=== PATIENT | male | born 1940 | race Caucasian/White ===

== ENCOUNTER 2017-03-08 03:32 | Observation (INO) | payer BC, MEDICARE, OTHER ==
[~2017-03-08] VITALS: Ht 172.7 cm; Wt 75.0 kg
[2017-03-08] MEDS ORDERED: NAPR220C2 PO (03:49)
[2017-03-08 04:55] LABS: BASOPHILS # (AUTO) 0.07 x10^3/uL (0-0.1); BASOPHILS % (AUTO) 1 % (0-1); EOSINOPHILS # (AUTO) 0.13 x10^3/uL (0-0.4); EOSINOPHILS % (AUTO) 2 % (1-7); LYMPHOCYTES # (AUTO) 1.82 x10^3/uL (1-3.4); LYMPHOCYTES % (AUTO) 25 % (22-44); MD NO; MEAN CORPUSCULAR HEMOGLOBIN 31.6 pg (27.5-34.5); MEAN CORPUSCULAR VOLUME 92.9 fL (81-97); MEAN PLATELET VOLUME 7.7 fL (7.4-10.4); MONOCYTES # (AUTO) 0.55 x10^3/uL (0.2-0.8); MONOCYTES % (AUTO) 8 % (2-9); NEUTROPHILS # (AUTO) 4.58 x10^3/uL (1.8-6.8); NEUTROPHILS % (AUTO) 64 % (42-75); PLATELET COUNT 162 x10^3/uL (130-400); RED BLOOD COUNT 4.56 x10^6/uL (4.38-5.82); RED CELL DISTRIBUTION WIDTH 13.7 % (9.4-14.8)
[2017-03-08 05:00] LABS: ALANINE AMINOTRANSFERASE 38 U/L (12-78); ALBUMIN 3.8 g/dL (3.4-5.0); ANION GAP 9 mmol/L (5-15); CHLORIDE 105 mmol/L (98-107); CREATININE 1.14 mg/dL (0.7-1.3)
[2017-03-08 05:07] LABS: ALKALINE PHOSPHATASE 63 U/L (45-117); BILIRUBIN,TOTAL 1.2 mg/dL (0.2-1.0); TOTAL PROTEIN 7.1 g/dL (6.4-8.2)
[2017-03-08 05:09] LABS: SALICYLATE LEVEL < 1.7 mg/dL (2.8-20.0)
[2017-03-08 05:10] LABS: ACETAMINOPHEN < 2 mcg/mL (10-30)
[2017-03-08 05:14] LABS: AMPHETAMINE SCREEN, URINE Negative (Negative); BARBITURATE SCREEN, URINE Negative (Negative); BENZODIAZEPINE SCREEN, URINE Negative (Negative); CANNABINOID SCREEN, URINE Negative (Negative); COCAINE SCREEN, URINE Negative (Negative); METHADONE SCREEN, URINE Negative (Negative); OPIATE SCREEN, URINE Negative (Negative)
[2017-03-08 06:34] LABS: MICROSCOPIC INDICATED
[2017-03-08 06:35] LABS: CULTURE INDICATED? NO
[2017-03-08] MEDS ORDERED: ACETAMINOPHEN 325 MG TABLET PO PRN (08:30)
[2017-03-08] MEDS ORDERED: POLYETHYLENE GLYCOL 17 GM PACKET PO PRN (08:30)
[2017-03-08] MEDS ORDERED: BISACODYL 10 MG SUPP PR PRN (08:30)
[2017-03-08] MEDS ORDERED: DOCUSATE 100 MG CAPSULE PO PRN (08:30)
[2017-03-08] MEDS ORDERED: ONDANSETRON ODT 4 MG PO PRN (08:30)
[2017-03-08 09:45] VITALS: BP_SYST 176; BP_SYST 178; BP_DIAS 107; BP_DIAS 73
[2017-03-08 10:08] VITALS: BP 180/89
[2017-03-08 11:11] VITALS: BP 133/95
[2017-03-08] MEDS: QUETIAPINE 25MG TABLET PO PRN ×2 (11:14→20:56)
[2017-03-08 12:18] LABS: HEMOGLOBIN A1C 7.7 % (4.2-6.3)
[2017-03-08] MEDS: INSULIN REGULAR 100 UNITS/ML, 3ML VIAL SQ-INSULIN SCH ×3 (12:36→20:56)
[2017-03-08 16:54] VITALS: BP 128/72
[2017-03-08 19:59] VITALS: BP 150/85
[2017-03-09] MEDS: INSULIN REGULAR 100 UNITS/ML, 3ML VIAL SQ-INSULIN SCH ×4 (07:30→21:00)
[2017-03-09 07:43] VITALS: BP 171/94
[2017-03-09] MEDS: metFORMIN 500 MG TABLET PO SCH ×2 (08:07→17:30)
[2017-03-09] MEDS: QUETIAPINE 25MG TABLET PO PRN ×2 (09:58→21:56)
[2017-03-09 12:12] VITALS: BP 117/73
[2017-03-09 19:26] VITALS: BP 167/90
[2017-03-09 19:30] LABS: MICROSCOPIC NOT IND
[2017-03-09 19:38] LABS: CULTURE INDICATED? NO
[2017-03-09] MEDS: MIRTAZAPINE 15 MG TABLET PO SCH (21:56)
[2017-03-10] MEDS: INSULIN REGULAR 100 UNITS/ML, 3ML VIAL SQ-INSULIN SCH ×4 (07:00→20:37)
[2017-03-10 07:20] VITALS: BP 141/81
[2017-03-10] MEDS: metFORMIN 500 MG TABLET PO SCH ×2 (08:15→17:33)
[2017-03-10 19:23] VITALS: BP 157/96
[2017-03-10] MEDS: QUETIAPINE 25MG TABLET PO PRN (20:37)
[2017-03-10] MEDS: MIRTAZAPINE 15 MG TABLET PO SCH (20:37)
[2017-03-11] MEDS: INSULIN REGULAR 100 UNITS/ML, 3ML VIAL SQ-INSULIN SCH ×2 (07:00→11:00)
[2017-03-11] MEDS: metFORMIN 500 MG TABLET PO SCH (07:34)
[2017-03-11 08:09] VITALS: BP 156/78
== END 2017-03-11 14:55 | disposition home or self-care (01) ==
LOC: ED 07:23 → EDIP 07:24 → INTOOBSV 07:24 → ED 07:31 → 2N 09:39
PROVIDERS: ADMIT Hospitalist; ATTEND Hospitalist
DX: R45.851 Suicidal ideations (principal); G93.40 Encephalopathy, unspecified; F32.9 Major depressive disorder, single episode, unspecified; E11.9 Type 2 diabetes mellitus without complications; F03.90 Unspecified dementia, unspecified severity, without behavioral disturbance, psychotic disturbance, mood disturbance, and anxiety; R74.0 Nonspecific elevation of levels of transaminase and lactic acid dehydrogenase [LDH]; Z79.84 Long term (current) use of oral hypoglycemic drugs
CPT/HCPCS: 36415; 70450; 80053; 80307; 80329; 81001; 81003; 82140; 82962; 83036; 84439; 84443; 85025; 93005; 96372; 99285; G0378; J1815; G0480